=== PATIENT | female | born 1980 | race Caucasian/White ===

== ENCOUNTER 2024-07-20 09:44 | Outpatient (REF) | payer BC, SELFPAY ==
--- NOTE | 2024-07-20 08:30 | PAPFT_PTH ---
PATIENT: Jess Meyer LOC: [facility] U#:[id number] AGE/SX: 44/F ROOM: RE07/20/[address]: Winifred Rivera NP : 1980 BED: DIS: 07/20/2024 SPEC #: [id number] RECD: 07/20/24 13:01 STATUS: JOHANNA SUH #: [id number] AIME: 07/20/24 08:[address]: Winifred Rivera NP DEPT: [facility] Cytology RECD BY: Susan Cordova ENTERED: 07/20/24 13:01 SP TYPE: PAPFT OTHR DR: Caden Jeffries Tissues: 1 - CX/ENDOCX FOR PAP SMEARS Procedures: PAP THIN PREP/UVM Screening HPV DNA PROBE Comments: [id number] (HPV 16 & 18/45)
== END 2024-07-20 09:45 | disposition home or self-care (01) ==
LOC: LBN 09:44
PROVIDERS: PCP Internal Medicine; Visit Provider Nurse Practitioner Women's Health
DX: Z12.2 Encounter for screening for malignant neoplasm of respiratory organs (principal)
CPT/HCPCS: 88142; 87624

== ENCOUNTER 2024-07-22 01:01 | Outpatient (CLI) | payer BC, SELFPAY ==
--- OUTSIDE RECORDS SUMMARY | 2024-07-22 01:02 | XMS_ITS | Encounter Summary ---
[place] [address] Care Team Providers Care Supervisor General Name Role Phone Caden Jeffries MD Primary Care Provider [phone] Encounter Details Date Type Department Care Team (Latest Contact Info) Description 05/30/2024 11:20 AM EDT Laboratory Appointment Lab [address] [place] [phone] Pre-employment health screening examination Social History Tobacco Use Types Packs/Day Years Used Date Smoking Tobacco: Never Smokeless Tobacco: Never Sex and Gender Information Value Date Recorded Sex Assigned at Not on file Gender Identity Not on file Sexual Orientation Not on file documented as of this encounter Plan of Treatment Not on file documented as of this encounter Procedures Procedure Name Priority Date/Time Associated Diagnosis Comments QUANTIFERON-TB GOLD Routine 05/30/2024 1 0:54 AM EDT Pre-employment health screening examination documented in this encounter Results * QuantiFERON-TB Gold (05/30/2024 10:54 AM EDT) Quantiferon TB Nil 0.014 IU/mL 05/31/2024 10:31 AM EDT [facility] QFT TB Ag1-Nil -0.002 <0.350 IU/mL 05/31/20 10:31 AM EDT [facility] QFT TB Ag2-Nil 0.026 <0.350 IU/mL 05/31/20 10:31 AM EDT [facility] Quantiferon TB Mitogen-Nil 9.986 IU/mL 05/31/2024 10:31 AM EDT [facility] Quantiferon Tb Interp Negative Negative 05/31/2024 10:31 AM EDT [facility] Blood VENOUS BLOOD SPECIMEN / Unknown Venipuncture / Unknown 05/30/2024 10:54 AM EDT 05/30/2024 10:54 AM EDT Narrative [facility] - 05/31/2024 10:31 AM EDT No interferon-gamma response to M. tuberculosis antigens was detected. A single negative result does not exclude infection with M. tuberculosis. ??In patients at high risk for M. tuberculosis infection, a second test should be considered in accordance with the 2017 ATS/IDSA/CDC Clinical Practice Guidelines for Diagnosis of Tuberculosis in Adults and Children. Charley Page APRN CHEMISTRY ORDERABLES [facility] [place] [address] documented in this encounter Visit Diagnoses Diagnosis Pre-employment health screening examination Health examination of defined subpopulation documented in this encounter Care Teams Supervisor General Relationship Specialty Start Date End Date Caden Jeffries MD [address] [place] [address] PCP - General 09/03/10 documented as of this encounter
--- OUTSIDE RECORDS SUMMARY | 2024-07-22 01:02 | XMS_ITS | Encounter Summary ---
Author Organization [facility] [address] Care Team Providers Care Harvest Manager Name Role Phone Caden Jeffries MD Primary Care Provider [phone] Encounter Details Date Type Department Care Team (Latest Contact Info) Description 05/30/2024 Transcribe Orders Lab [address] [place] [address] Charley Page, CAROLYN [facility] [place] [address] Pre-employment health screening examination Social History Tobacco Use Types Packs/Day Years Used Date Smoking Tobacco: Never Smokeless Tobacco: Never Sex and Gender Information Value Date Recorded Sex Assigned at Not on file Gender Identity Not on file Sexual Orientation Not on file documented as of this encounter Plan of Treatment Not on file documented as of this encounter Results * QuantiFERON-TB Gold (05/30/2024 10:54 AM EDT) Quantiferon TB Nil 0.014 IU/mL 05/31/2024 10:31 AM EDT [facility] QFT TB Ag1-Nil -0.002 <0.350 IU/mL 05/31/20 10:31 AM EDT [facility] QFT TB Ag2-Nil 0.026 <0.350 IU/mL 05/31/20 10:31 AM EDT [facility] Quantiferon TB Mitogen-Nil 9.986 IU/mL 05/31/2024 10:31 AM EDT [facility] Quantiferon Tb Interp Negative Negative 05/31/2024 10:31 AM EDT [facility] Blood VENOUS BLOOD SPECIMEN / Unknown Venipuncture / Unknown 05/30/2024 10:54 AM EDT 05/30/2024 10:54 AM EDT Narrative [facility] - 05/31/2024 10:31 AM EDT No interferon-gamma response to M. tuberculosis antigens was detected. A single negative result does not exclude infection with M. tuberculosis. ??In patients at high risk for M. tuberculosis infection, a second test should be considered in accordance with the 2017 ATS/IDSA/CDC Clinical Practice Guidelines for Diagnosis of Tuberculosis in Adults and Children. Charley Page APRN CHEMISTRY ORDERABLES Performing Organization Address City/State/[facility] Co de Phone Number [facility] [place] [address] documented in this encounter Visit Diagnoses Diagnosis Pre-employment health screening examination Health examination of defined subpopulation documented in this encounter Care Teams Harvest Manager Relationship Specialty Start Date End Date Caden Jeffries MD [address] [place] [address] PCP - General 09/03/10 documented as of this encounter
--- OUTSIDE RECORDS SUMMARY | 2024-07-22 01:02 | XMS_ITS | Clinical Summary ---
Author Organization [facility] [place] [address] Care Team Providers Care Custodial Operations Manager Name Role Phone Caden Jeffries MD Primary Care Provider Allergies Active Allergy Reactions Criticality Noted Date Comments Morphine Anaphylaxis High 12/22/2018 Medications Medication Sig Dispensed Refills Start Date End Date Status levonorgestrel (MIRENA) 20 mcg/24 hours (5 yrs) 52 mg IUD 1 each by Intrauterine route Continuous (Device). Expected removal date Jun 2024 Active ketoconazole (NIZORAL) 2 % ShampooIndications: Tinea versicolor Shampoo and let it sit for 5-10 minutes, then rinse. Recommend applying 2 to 3 times weekly. 120 mL 3 01/04/2024 Active ketoconazole (Nizoral) 2 % CreamIndications:Ti olga versicolor Apply twice daily to affected areas on the upper back, neck and extending into the scalp for 28 days and then as needed subsequently. 60 g 5 01/04/2024 Active Active Problems No known active problems Encounters Date Type Department Care Team Description 05/30/2024 11:20 AM EDT Laboratory Appointment Lab [address] [place] [phone] Pre-employment health screening examination 05/30/2024 Transcribe Orders Lab [address] [address] Kaylee, Cahrley T, VESSEL ENGINEER Pre-employment health screening examination 05/30/2024 Travel from Last 3 Months Immunizations Name Administration Dates Next Due Covid-19 Monovalent (Pfizer Comirnaty purple cap) 12yrs+ ([id number]) 10/25/2020,10/03/2020 Hepatitis A, Unspecified Formulation 01/23/2006 Influenza PF, Split 07/31/2016, 5,07/25/2014,2011 Influenza Quadrivalent, Pres ervative Free 07/22/2021,07/31/2020,07/27/2019,2017,07/08/2017 Polio Inactivated (IPOL) 01/23/2006 Tdap (Adacel, Boostrix) 04/04/2014,01/23/2006 Typhoid Live, Oral 01/23/2006 Yellow Fever Vaccine 01/23/2006 Social History Tobacco Use Types Packs/Day Years Used Date Smoking Tobacco: Never Smokeless Tobacco: Never Sex and Gender Information Value Date Recorded Sex Assigned at Not on file Gender Identity Not on file Sexual Orientation Not on file Last Filed Vital Signs Vital Sign Reading Time Taken Comments Blood Pressure 117/70 07/25/2020 7:04 AM EDT Pulse 52 07/25/2020 7:04 AM EDT Temperature - - Respiratory Rate - - Oxygen Saturation - - Inhaled Oxygen Concentration - - Weight - - Height - - Body Mass Index - - Plan of Treatment Health Maintenance Due Date Last Done Comments HIV screen 2000 Hepatitis C Screening 2000 HPV test 2012 PAP Smear 2012 Breast Cancer Share Decision Needed 2022 Breast Cancer screening 2022 Tetanus/Diphtheria/Pertussis Vaccines (3 - Td or Tdap) 04/04/2024 04/04/2014, 01/23/2006 Covid-19 Vaccine (3 - 2022-2 4 season) 2024 10/25/2020, 10/03/2020 Influenza (Flu) vaccine (1 o f 1 - Influenza standard series) 06/12/2024 07/22/2021, 07/31/2020, 07/27/2019, Additional history exists Procedures Procedure Name Priority Date/Time Associated Diagnosis Comments QUANTIFERON-TB GOLD Routine 05/30/2024 1 0:54 AM EDT Pre-employment health screening examination from Last 3 Months Results * QuantiFERON-TB Gold (05/30/2024 10:54 AM EDT) Quantiferon TB Nil 0.014 IU/mL 05/31/2024 10:31 AM EDT [facility] QFT TB Ag1-Nil -0.002 <0.350 IU/mL 05/31/20 10:31 AM EDT [facility] QFT TB Ag2-Nil 0.026 <0.350 IU/mL 05/31/20 10:31 AM EDT [facility] Quantiferon TB Mitogen-Nil 9.986 IU/mL 05/31/2024 10:31 AM EDT [facility] Quantiferon Tb Interp Negative Negative 05/31/2024 10:31 AM EDT [facility] Blood VENOUS BLOOD SPECIMEN / Unknown Venipuncture / Unknown 05/30/2024 10:54 AM EDT 05/30/2024 10:54 AM EDT Narrative [facility] - 05/31/2024 10:31 AM [...] and Children. Charley Page APRN CHEMISTRY ORDERABLES [facility] [place] [address] from Last 3 Months Care Teams Custodial Operations Manager Relationship Specialty Start Date End Date Caden Jeffries MD [address] [place], [place] [address] PCP - General 09/03/10
--- OUTSIDE RECORDS SUMMARY | 2024-07-22 01:03 | XMS_ITS | Encounter Summary ---
Author Organization [facility] Address [address] [place] [address] Care Team Providers Care Piece Presser Name Role Phone Caden Jeffries MD Primary Care Provider [phone] Encounter Details Date Type Department Care Team (Late st Contact Info) Description 12/18/2021 Lab Requisition [facility] Pathology & Laboratory Medicine - [address] [address] Outr Resulting Lab, Provider Social History Tobacco Use Types Packs/Day Years Used Date Smoking Tobacco: Never Assessed Sex and Gender Information Value Date Recorded Sex Assigned at Not on file Gender Identity Not on file Sexual Orientation Not on file documented as of this encounter Plan of Treatment Not on file documented as of this encounter Procedures Procedure Name Priority Date/Time Associated Diagnosis Comments QUANTIFERON MITOGEN (PERFORMABLE) Today 12/17/2021 10:13 EST QUANTIFERON TB2 (PERFORMABLE) Today 12/17/2021 10:13 EST QUANTIFERON TB1 (PERFORMABLE) Today 12/17/2021 10:13 EST QUANTIFERON NIL (PERFORMABLE) Today 12/17/2021 10:13 EST QUANTIFERON INTERPRETATION (PERFORMABLE) Today 12/17/2021 10:13 EST QUANTIFERON TB GOLD PLUS Routine 12/17/2021 10:13 EST documented in this encounter Results * QUANTIFERON INTERPRETATION (PERFORMABLE) (12/17/2021 10:13 EST) Quantiferon Interpretation Negative Negative 12/19/2021 12:17 EST [facility] Comment:No interferon-gamma response to M. tuberculosis antigens was detected. ??Infection with M. tuberculosis is unlikely. A single negative result does not exclude infection with M. tuberculosis. ??In patients at high risk for M. tuberculosis infection, a second test should be considered. TB1 Ag minus Nil 0.01 IU/ml 12/20/19 12:17 EST [facility] TB2 Ag minus Nil 0.03 IU/mL 12/20/19 12:17 EST [facility] Blood VENOUS BLOOD / Unknown 12/17/2021 10:13 EST 12/19/2021 11:50 EST Narrative [facility] - 12/19/2021 12:17 EST Results were obtained with the [employer] QuantiFERON-TB Gold Plus CLIA. New platform in use 06/19/2021 Provider Outr Resulting Lab IMMUNOLOGY A ND SEROLOGY ORDERABLES Performing Organization Address [facility] Co de Phone Number [facility] [address] [place] [address] * QUANTIFERON MITOGEN (PERFORMABLE) (12/17/2021 10:13 EST) Blood VENOUS BLOOD / Unknown 12/17/2021 10:13 EST 12/18/2021 16:49 EST Provider Outr Resulting Lab IMMUNOLOGY A ND SEROLOGY ORDERABLES Performing Organization Address City/[facility]/ZIP Co de Phone Number [facility] [address] [place] [address] * QUANTIFERON TB2 (PERFORMABLE) (12/17/2021 10:13 EST) Blood VENOUS BLOOD / Unknown 12/17/2021 10:13 EST 12/18/2021 16:49 EST Provider Outr Resulting Lab IMMUNOLOGY A ND SEROLOGY ORDERABLES Performing Organization Address [facility]/ZIP Co de Phone Number [facility] [address] [place] [address] * QUANTIFERON TB1 (PERFORMABLE) (12/17/2021 10:13 EST) Blood VENOUS BLOOD / Unknown 12/17/2021 10:13 EST 12/18/2021 16:49 EST Provider Outr Resulting Lab IMMUNOLOGY A ND SEROLOGY ORDERABLES Performing Organization Address [facility] de Phone Number [facility] [address] [place] [address] * QUANTIFERON NIL (PERFORMABLE) (12/17/2021 10:13 EST) Blood VENOUS BLOOD / Unknown 12/17/2021 10:13 EST 12/18/2021 16:49 EST Provider Outr Resulting Lab IMMUNOLOGY A ND SEROLOGY ORDERABLES Performing Organization Address [facility] de Phone Number [facility] [address] [place] [address] documented in this encounter Visit Diagnoses Not on filedocumented in this encounter Care Teams Piece Presser Relationship Specialty Start Date End Date Caden Jeffries MD [address] [place] [address] PCP - General 04/11/10 documented as of this encounter
--- OUTSIDE RECORDS SUMMARY | 2024-07-22 01:03 | XMS_ITS | Encounter Summary ---
Author Organization [facility] [place] [address] Care Team Providers Care Manager Cancer Name Role Phone Caden Jeffries MD Primary Care Provider [phone] Encounter Details Date Type Department Care Team (Late st Contact Info) Description 07/25/2020 7:00 AM EDT Office [place] [address] Charley Page APRN [facility] [place] [address] Wheezing (Primary Dx) Social History Tobacco Use Types Packs/Day Years Used Date Smoking Tobacco: Never Smokeless Tobacco: Never Sex and Gender Information Value Date Recorded Sex Assigned at Not on file Gender Identity Not on file Sexual Orientation Not on file documented as of this encounter Last Filed Vital Signs Vital Sign Reading Time Taken Comments Blood Pressure 117/70 07/25/2020 7:04 AM EDT Pulse 52 07/25/2020 7:04 AM EDT Temperature - - Respiratory Rate - - Oxygen Saturation - - Inhaled Oxygen Concentration - - Weight - - Height - - Body Mass Index - - documented in this encounter Patient Instructions * Patient Instructions* Charley Page APRN - 07/25/2020 7:00 AM EDT 1. Wheezing Please follow up with your primary care provider to discuss if pulmonary function testing is warranted to determine your asthma status given current symptoms. I will reach out to discuss possible, but unlikely correlation between mask use and your current symptoms of wheezing after discontinuing mask use and get back to you. I will also email you the list of our current masks in use with their active ingredients as requested. documented in this encounter Progress Notes * Charley Page APRN - 07/25/2020 7:00 AM EDT Subjective: Patient ID: Jess Meyer is a 40 y.o. female No chief complaint on file. History of Present Illness: Jess Meyer presents with mask related complaints. Onset of symptoms about a month and half ago. She has noted that after working two consecutive 12-hour shifts, about 24 hours later she will do her usual exercise on the stationary bicycle and will note audible wheezing with mild shortness of breath that is atypical for her. This is not a new exercise for her, sherides the bike normally and does not experience this until of recent. She denies any chest pain, heart palpitations, diaphoresis or lightheadedness associated and she directly correlates the wheezingand shortness of breath with exercise to her mask use at work. After the first day of exercise following her two shifts, she will not continue to experience the wheezing, this only occurs on that first day of exercising. She reports that she was previously able to use the standard Level 2 medical masks with similar symptoms, current symptoms only with the Level 1 masks being handed out at the door. She does have a history of exercise induced asthma, with rescue inhaler use as a child. She has notneeded the inhaler in 20 years. Did not need it throughout . She has allergy to morphine. Thinks she has seasonal allergies, in the Fall will notice some sinus pressure with their wood stove, denies any significant rhinorrhea. When she does get a cold in the Winter months, she may get a bit of a reactive airway with a cough that might linger longer than other symptoms. She denies any tobacco use They heat with a wood stove at home She denies latex allergy She denies any allergies to dyes, perfumes or chemical sensitivities Review of Systems Constitutional: Negative for chills and fever. HENT: Positive for sinus pressure. Negative for congestion, postnasal drip, rhinorrhea and sinus pain. Respiratory: Positive for shortness of breath and wheezing. Negative for cough and chest tightness. Cardiovascular: Negative for chest pain, palpitations and leg swelling. Allergic/Immunologic: Negative for environmental allergies. Neurological: Negative for dizziness and light-headedness. Active Ambulatory Problems Diagnosis Date Noted ??? No Active Ambulatory Problems Resolved Ambulatory Problems Diagnosis Date Noted ??? No Resolved Ambulatory Problems No Additional Past Medical History No family history on file. Social History Social History Narrative ??? Not on file Current Outpatient Medications: ??? levonorgestrel (MIRENA) 20 mcg/24 hours (5 yrs) 52 mg IUD, 1 each by Intrauterine route Continuous (Device). Expected removal date Jun 2024, Disp: , Rfl: Allergies Allergen Reactions ??? Morphine Anaphylaxis Objective: Visit Vitals BP 117/70 Pulse 52 Physical Exam: Gen: Well developed, well nourished, appears stated age, no acute distress. HEENT: Normocephalic, atraumatic. sclera white, conjunctiva not injected, nares with moist/pink mucosa, septum midline, Oropharynx is nonerythematous and without exudate, uvula midline. Cardiovascular: Regular rate and rhythm. No murmurs, rubs, or gallops. Pulmonary: Clear to auscultation bilaterally with good air movement. No wheeze, rales, or rhonchi. Extremities: Nonedematous. Capillary refill < 3 seconds. Full active ROM. Neurologic: Alert and oriented x 3. Assessment and Plan: Jess Meyer presents with concerns of mask related wheezing and a relevant past medical history notable for exercise induced asthma which has been inactive for quite some time. It seems unlikelythat there is a correlation between the mask use and wheezing as symptoms of wheezing are not present while wearing the mask, they present 24 + hours after discontinuing use of the mask. Will review w ith Allergy, but advised that she should follow up with her primary care provider to discuss if pulmonary function testing to review her asthma status would be warranted as given her history of exercise induced asthma, she may be in need of a rescue inhaler for pre-exercise treatment as in the past. In the meantime, she was advised that she may use the Level 2 standard medical masks as she did not feel these were problematic to her in the past and they are readily accessible to her on the unit. documented in this encounter Plan of Treatment Not on file documented as of this encounter Visit Diagnoses Diagnosis Wheezing- Primary documented in this encounter Care Teams Manager Cancer Relationship Specialty Start Date End Date Caden Jeffries MD [address] [place] [address] PCP - General 09/03/10 documented as of this encounter
--- OUTSIDE RECORDS SUMMARY | 2024-07-22 01:03 | XMS_ITS | Encounter Summary ---
[place] [address] Care Team Providers Care Assistant News Director Name Role Phone Caden Jeffries MD Primary Care Provider [phone] Encounter Details Date Type Department Care Team (Latest Contact Info) Description 05/30/2024 Travel Social History Tobacco Use Types Packs/Day Years Used Date Smoking Tobacco: Never Smokeless Tobacco: Never Sex and Gender Information Value Date Recorded Sex Assigned at Not on file Gender Identity Not on file Sexual Orientation Not on file documented as of this encounter Plan of Treatment Not on file documented as of this encounter Visit Diagnoses Not on filedocumented in this encounter Care Teams Assistant News Director Relationship Specialty Start Date End Date Caden Jeffries MD [address] [place] [address] PCP - General 09/03/10 documented as of this encounter
--- OUTSIDE RECORDS SUMMARY | 2024-07-22 01:03 | XMS_ITS | Encounter Summary ---
Author Organization [facility] Address [address] [place] [address] Care Team Providers Care City Weighmaster Name Role Phone Unknown, Provider Primary Care Provider Encounter Details Date Type Department Care Team (Late st Contact Info) Description 03/13/2009 Orders Only [address] [address] Zelda Da Silva MD [address] [place] [id number] Social History Tobacco Use Types Packs/Day Years Used Date Smoking Tobacco: Never Assessed Sex and Gender Information Value Date Recorded Sex Assigned at Not on file Gender Identity Not on file Sexual Orientation Not on file documented as of this encounter Plan of Treatment Not on file documented as of this encounter Procedures Procedure Name Priority Date/Time Associated Diagnosis Comments CYTOPATHOLOGY Routine 03/13/2009 0:00 EDT documented in this encounter Results * CYTOPATHOLOGY (03/13/2009 0:00 EDT) Pathology Report: CYTOPATHOLOGY REPORT ? Reports generated via electronic interface contain original data; ? however they are lacking the format of the original report. ? Caution should be taken when reading/interpreti ng unformatted reports. ? Name: ? JESS MEYER ? Accession #: ? [id number] ? : ? 1980 (Age: 28) ??F ?Collect Date: ? 03/13/2009 ? Location: ? [facility] ? Receive Date: ? 03/14/2009 ? Provider: ?ZELDA DA SILVA MD ? Copy to: ? Specimen/Source: ?Pap Test, Vagina, ThinPrep Imaging System with manual ?? evaluation ? Last Menstrual Period: ? 5/19/09 ? Other: ? HPVA - HPV testing requested if ASC-US on the current ThinPrep Pap test. ? SPECIMEN ADEQUACY ? Satisfactory for Evaluation ? - transformation zone component present ? GENERAL CATEGORIZATION ? Negative for Intraepithelial Lesion or Malignancy ? Document reviewed and electronically signed by: ? Trina Manley, SCT(ASCP) ? Report Date: ??03/19/2009 08:23 ? End of Report ? [facility] 03/13/2009 03/14/2009 Zelda Da Silva MD PATHOLOGY ORDERABLES Performing Organization Address City/State/[facility] Co de Phone Number [facility] [address] [place] [address] documented in this encounter Visit Diagnoses Not on filedocumented in this encounter Care Teams City Weighmaster Relationship Specialty Start Date End Date Unknown, Provider, PCP - General 03/14/09 04/10/10 documented as of this encounter
--- OUTSIDE RECORDS SUMMARY | 2024-07-22 01:03 | XMS_ITS | Encounter Summary ---
[place] [address] Care Team Providers Care Vineyard Supervisor Name Role Phone Caden Jeffries MD Primary Care Provider Encounter Details Date Type Department Care Team (Late st Contact Info) Description 10/03/2020 [place] [address] [place] [address] Social History Tobacco Use Types Packs/Day Years [...] on filedocumented in this encounter Care Teams Vineyard Supervisor Relationship Specialty Start Date End Date Caden Jeffries MD [address] [place], [place] [address] PCP - General 09/03/10 documented as of this encounter
--- OUTSIDE RECORDS SUMMARY | 2024-07-22 01:03 | XMS_ITS | Encounter Summary ---
Author Organization [facility] [place] [address] Care Team Providers Care Case Management Coordinator Name Role Phone Caden Jeffries MD Primary Care Provider Encounter Details Date Type Department Care Team (Late st Contact Info) Description 07/25/2014 Orders Only [place] [address] Cristofer Freire, CREDIT RISK MANAGEMENT DIRECTOR [facility] [place] [address] Social History Tobacco Use Types Packs/Day Years Used Date Smoking Tobacco: Never Assessed Sex and Gender Information Value Date Recorded Sex Assigned at Not on file Gender Identity Not on file Sexual Orientation Not on file documented as of this encounter Plan of Treatment Not on file documented as of this encounter Procedures Procedure Name Priority Date/Time Associated Diagnosis Comments QUANTIFERON-TB GOLD Routine 07/25/2014 1 1:06 AM EDT documented in this encounter Results * QuantiFERON-TB Gold (07/25/2014 11:06 AM EDT) Quantiferon-TB Gold Negative Negative [facility] Comment: Nil (IU/mL)= 0.13 TB Ag minus Nil (IU/mL)= -0.07 Mitogen minus Nil (IU/mL)= >10 M. tuberculosis (TB) infection NOT likely ?A negative specimen should have a TB Ag minus Nil value less than 0.35 IU/mL OR a TB Ag minus Nil greater than or equal to 0.35 IU/mL and in addition the TB Ag minus Nil value must be less than 25% of the Nil value. A negative specimen should have a Mitogen minus Nil value greater than or equal to 0.5 IU/mL. ?A negative QuantiFERON-TB Gold IT result does not preclude the possibility of M. tuberculosis infection or tuberculosis disease: false negative results can be due to stage of infection (e.g., specimen obtained prior to the development of cellular immune response), co-morbid conditions which affect immune function, or other individual immunological factors. ?The performance of the QuantiFERON-TB Gold IT test has not been extensively evaluated with specimens from the following groups of individuals: ?1. Individuals who have impaired or altered immune function such as those who have HIV infection or AIDS, those who have transplantation managed with immunosuppressive treatment or others who receive immunosuppressive drugs (e.g., corticosteroids, methotrexate, azathioprine, cancer chemotherapy), and those who have other clinical conditions: diabetes, silicosis, chronic renal failure, hematological disorders (e.g., leukemia and lymphomas), and other specific malignancies (e.g., carcinoma of the head or neck and lung). ?2. Individuals younger than age 17 years. ?3. women. Note: Diagnosing or excluding tuberculosis disease, and assessing the probability of LTBI, require a combination of epidemiological, historical, medical, and diagnostic findings that should be taken into account when interpreting QuantiFERON-TB Gold results. Reference (http://www.cdc.gov/nchstp/tb/) Blood specimen (specimen) 07/25/2014 11:06 AM EDT 07/26/2014 8:06 AM EDT Narrative Resulting Agency Comment Spec In Lab Cristofer Freire CREDIT RISK MANAGEMENT DIRECTOR CHEMISTRY ORDERABLE [facility] documented in this encounter Visit Diagnoses Not on filedocumented in this encounter Care Teams Case Management Coordinator Relationship Specialty Start Date End Date Caden Jeffries MD [address] [place] [address] PCP - General 09/03/10 documented as of this encounter
--- OUTSIDE RECORDS SUMMARY | 2024-07-22 01:03 | XMS_ITS | Encounter Summary ---
Author Organization [facility] Address [facility] [place] [address] Care Team Providers Care Variety Saw Operator Name Role Phone Caden Jeffries MD Primary Care Provider [phone] Reason for Visit * Reason Comments Procedure Encounter Details Date Type Department Care Team (Late st Contact Info) Description 07/27/2019 8:00 AM EDT Office Visit Dermatology at [address] [place] [address] Julia Mcrae MD [facility] [address] [address] Encounter for cosmetic procedure Social History Tobacco Use Types Packs/Day Years Used Date Smoking Tobacco: Never Smokeless Tobacco: Never Sex and Gender Information Value Date Recorded Sex Assigned at Not on file Gender Identity Not on file Sexual Orientation Not on file documented as of this encounter Patient Instructions * Patient Instructions* Chanel Frederick CCMA - 07/27/2019 8:00 AM EDT Images from the original note were not included. SCLEROTHERAPY INSTRUCTIONS Thank you for scheduling your Sclerotherapy treatment with [facility]. Patients typically require anywhere from two to six treatments to effectively clear their unwanted veins. Treatments should be scheduled at 6- 8week intervals. For your safety and in order to obtain optimum results, the instructions below must be followed. Pre-Treatment instructions for your legs prior to treatment for veins: ??? No aspirin or blood-thinning products (fish oil, vitamin E, ibuprofen, non- steroidal anti-inflammatory drugs) for 7-9 days before the procedure (check with your physician first if you must be on these medications). ??? Bring Support Hose to your procedure for immediate post procedure use. We suggest 20-30 mmHg pressure. ??? Do not shave or use depilatories on legs the day of the procedure. ??? Do not apply lotion to your legs on the day of the procedure. ??? Shower and thoroughly wash your legs with a gentle skin cleanser the morning of your appointment. ??? Expect possible bruising for approximately one week after the procedure. ??? Mild muscle cramping is not uncommon during the procedure. Ok to take an extra strength Tylenol1 hour before your procedure. Avoid Ibuprofen until after your procedure. ??? Bring shorts to increase your comfort during the treatment. ??? Try to avoid drinking alcohol or smoking 2 days prior and 2 days after the procedure. ??? If you have any further questions, please ask your doctor prior to the procedure. Care instructions for your legs after treatment for veins: ??? Leave thigh-high compression stockings on for 24 hours after treatment. After the first 24 hours, please take them off only to bathe. ??? After the first week, stockings can be removed at night or any time that the legs can be elevated. Wearing the compression stockings will help you to achieve the best possible result with fewer side effects. Continue to wear them as part of your regular routine. They may prevent the appearance of new veins especially if you sit or stand for more than 6 hours a day or have a strong family history of varicose veins. ??? Do not shave your legs for 3-4 days. ??? Take a 30-60 minute walk shortly after the treatment, and walk 20-30 minutes a day for 2 weeks,but avoid high impact exercise (aerobics or running) or heavy weight lifting for 7 days. Walking, swimming, yoga and cycling are healthy exercises to initiate the day after your treatment. ??? Avoid hot baths or Jacuzzis for a few days following procedure to avoid dilating veins. ??? Typical side effects that should not cause concern: o Redness and swelling (with the appearance of ???hives?? ) around the treated veins that may last 1-2 days. This may be associated with some itching and burning and may improve with xtlt-mah-zqdyqbaKfclxbyq 25mg or a non-sedating antihistamine such as Zyrtec 10mg. o Bruising around the treated area is normal and should resolve within 1 week. o Discoloration is common as treated veins heal. Veins may appear purple, brown or blue for 6-8 weeks. Sun exposure worsens discolorations and may cause them to last longer or become permanent. Avoidsun exposure completely until the treated areas return to your normal appearing skin. Untreated trapped blood (see next) may also increase your risk of long lasting discoloration. ??? Less Common side effects that we want to know about: o Trapped blood is a treatable, occasional side effect that should be reported to your provider. A firm lump appears in the skin when blood accumulates in a treated vessel 1-2 weeks after treatment. This can easily be treated in the office. Please call if you experience this treatable side effect. o Pain, expanding redness/ swelling, blistering, or leg swelling should be immediately reported to your doctor. ??? Expect not to see improvement for at least 6 weeks after your treatment. During the post treatment period it is normal for veins to actually look worse. ??? Avoid blood thinners (aspirin, fish oil, vitamin E, ibuprofen, etc.) for 3-4 days following procedure (ask your doctor first if these are prescribed by your doctor) Resources for Support Stockings: [email or web address] Questions and/or concerns please call: ???s appointment corporate legal secretary On weekends of off hours please call [facility] main number and ask for the material carrier final inspection supervisor: or call Dr. Mcrae's cell: [phone] or email her at [email or web address] What are Unwanted Leg Veins Called? When leg veins become damaged or aged and stop functioning efficiently they become visible on the surface of the skin. Their appearance can be categorized based on their size: Varicose veins are large, ropy and tortuous blue veins that bulge and are very noticeable. These veins are not typically treated by sclerotherapy in our office but can be treated by interventional radiologists or vascular surgeons. We can refer you if this is needed. Reticular veins are blue or green, 2-6 mm non- bulging and often subtle leg veins. Reticular veins are sometimes referred to as ???feeder veins?? and are commonly understood to be the cause of spider veins. Spider veins may respond better when the reticular veins are treated first. Spider veins are small veins (less than 2mm) that can be seen on the surface of the skin and resemble tree branches with short, jagged lines. They are considered a milder form of varicose veins and differ in appearance, ranging from pink, red to bluish purple. These veins are a common target for scl erotherapy treatments. Telangiectasias: are the smallest form of spider veins (always less than 1 mm) and are red in color. Telangiectasias often improve with sclerotherapy but are sometimes too small to target. In those cases, lasers may be used. What causes visible leg veins? The appearance of visible veins in our legs is most often a normal consequence of aging and wear and tear on the valves that make our veins function properly. Heredity, hormone replacement thereapy, , obesity, inactivity, high impact activity, and trauma are among the factors that influen ce the appearance and severity of leg veins. What is Sclerotherapy? Performed on an outpatient basis, sclerotherapy involves the injection of a sclerosing solution, (such as hypertonic saline, glycerin or Sotradecol) into the dilated vessels. This causes the lining of the vessels to swell and close, resulting in both a landscape laborer color and improvement in the appearance of the vessels. In many cases, the veins can be completely eliminated. What Can I Expect During Treatment? Most people experience mild discomfort for about 15 to 30 seconds, similar to a mosquito bite. The area to be treated is wiped with alcohol and then injections are made into the visible veins. Injections range from barely noticeable to sometimes uncomfortable but the discomfort is always brief.The injected veins completely disappear for a few minutes as blood is pushed out by the solution, but they reappear when the blood flow returns. What Can I Expect After Treatment? Immediately afterwards and for several weeks, those treated veins will look more noticeable than they were to begin with. Since many vessels are interconnected, one injection may eradicate several dozen vessels at once by washing over the cells lining the inner wall of the vessel, causing them to shrink. They will slowly disappear, as your body???s natural response to injury clears them. Some patients experience itching and swelling for up to 12 hours after the treatment but for most these symptoms are very mild. Experts debate the importance of support stockings after sclerotherapy. Their importance is thought to be greater when the veins being treated are larger. We therefore require themafter treatment of reticular veins (larger blue feeder veins) and encourage them but do not requirethem after spider vein or telangiectasia are treated. They should be worn at all times throughout the day. How Soon Will the Veins Disappear? Veins will fade over six to 12 weeks after treatment. Smaller vessels may disappear completely and large vessels should decrease in size. Are There Any Restrictions After Sclerotherapy? We encourage you to be active after sclerotherapy. Walking (even immediately) is helpful. Yoga, swimming, bicycling and walking are all allowed and encouraged. Are There Any Side Effects Associated with Sclerotherapy? Serious side effects from this procedure are extremely rare; however, some temporary side effects may occur. ??? Local swelling and bruising may occur at the injection site and along the vessel. Swelling usually lasts no more than 24 hours; bruising fades within several weeks. Brown discoloration may infrequently develop. This usually lasts approximately three months, slowly fading away. ??? Tenderness may occur at the injection site and along the vessel, and may persist for a few days. ??? Immediately following injection, a hive-like reaction may develop at the site, usually lasting no longer than 30 minutes. ??? Following injection of the ankle or calf, cramping similar to a ???charley horse?? may occur. documented in this encounter Progress Notes * Julia Mcrae MD - 07/27/2019 8:00 AM EDT Images from the original note were not included. DATE OF SERVICE: 07/27/2019 PROVIDER: MD Jess Tinajero Elly Mitch : 1980 PATIENT PREFERENCES: -prefers to be called: Jess or Melissa BRONSON Jess Meyer is a 39 y.o. year old female. Here for sclerotherapy procedure 07/27/2019. Date and name of most recent procedure: n/a Patient's impression of recent procedure experience and results: n/a Concerns from previous visit?: n/a COSMETIC TREATMENT VISIT -Questions or concerns today? none -Any change in health or new diagnosis since last visit?: had Mirena IUD placed in Jun -Any new medications?: as above -Pt received pre and post instructions? yes -HSV prophylaxis? No history -Stopped retinoids/ Vitamin C/ AHAs? yes -Recent sun exposure? No, not for 2 months -, lactating or trying to conceive?: no -Recent ibuprofen, aspirin, or other blood thinner? (including ginko biloba, vitamin E, fish oil) none ADR: Allergies Allergen Reactions ??? Morphine Anaphylaxis MEDS: No current outpatient medications on file. No current facility-administered medications for this visit. EXAMINATION: -New findings: Assessment and Plan: # Unwanted leg veins Area of Concern: Legs - Treatment today? Y If yes, see Sclerotherapy Treatment Log - Special considerations for this patient: Most concerned over veins on the calf on the left leg. pt is nurse and works long shifts. Encouraged today to wear compression stockings when working - Consent signed?: (date) - Suggested treatment course: vials every 6-8 weeks for treatments. - [facility] quoted: $250 per session - Sclerotherapy Before and After HO given? Y ?? # ND Yag treatments for spider veins located on bilateral legs - Number of treatments recommeded: 1-2 - Special considerations for this pt: - Area of main concern: back of left lower leg - Before and after instructions given (in AVS): N (name of handout) - HSV prophylaxis needed?: N If yes, does pt have rx?: N date verified: 07/27/19?? - [facility] quoted: $250.00 per treatment - See laser log for treatment dates and details - Consent signed? Yes -Additional notes: consider beginning tx after sclerotherapy ?? Date: 07/27/19 Laser: IPL Area: lower legs Spot: large Energy(J): 19 Pulse Duration: 01/29/ Pulse #: 6 Paid: $combined cost Tx By:RL Notes: SCLEROTHERAPY TREATMENT LOG Date: 07/27/19 Area: lower legs Sclerosant: Asclera 1%, 20mg per 2mL Number of Vials: 4 Lot #: [id number] Expiration: 07/2021 Paid: $250 Tx By:RL Notes: ? FOLLOW UP WHEN: Nov FOR WHAT: sclerotherapy +IPL LENGTH OF VISIT: 15 NUMBING?: no PICTURES NEEDED? Yes (iPad)OK D/B?: no Notes: COSMETIC COST TODAY: $150 ($250- $100 from consult) Photos obtained with patient consent: Treatment delivered by Dr. Mcrae I am documenting this encounter acting as the scribe for and in the presence of Julia Mcrae MD,LILLIAN Campa I performed the above scribed service and agree with the accuracy of the documentation in this encounter, MD Julia Tinajero MD Section of Dermatology documented in this encounter Plan of Treatment Not on file documented as of this encounter Visit Diagnoses Diagnosis Encounter for cosmetic procedure documented in this encounter Care Teams Variety Saw Operator Relationship Specialty Start Date End Date Caden Jeffries MD [address] [place] [address] PCP - General 09/03/10 documented as of this encounter
--- OUTSIDE RECORDS SUMMARY | 2024-07-22 01:03 | XMS_ITS | Encounter Summary ---
[facility] [place] [address] Care Team Providers Care Box Maker Name Role Phone Caden Jeffries MD Primary Care Provider [phone] Encounter Details Date Type Department Care Team (Late st Contact Info) Description 02/13/2009 Orders Only Dermatology at [place] [address] [place] [address] Luis Fernando Govea MD [address] [facility], LUCIA A DERMATOLOGY [place], [place] [id number] Social History Tobacco Use Types Packs/Day Years Used Date Smoking Tobacco: Never Assessed Sex and Gender Information Value Date Recorded Sex Assigned at Not on file Gender Identity Not on file Sexual Orientation Not on file documented as of this encounter Plan of Treatment Not on file documented as of this encounter Procedures Procedure Name Priority Date/Time Associated Diagnosis Comments SURGICAL PATHOLOGY REPORT Routine 02/13/2009 7:05 PM EDT documented in this encounter Results * Surgical Pathology Report (02/13/2009 7:05 PM EDT) Surgical Pathology Report [id number] ? Location: [facility] The signing pathologist has (i) examined the relevant preparation(s) for the specimen(s) and (ii) rendered or confirmed the diagnosis(es). . ?Pathology Surgical Pathology Final Report Clinical Information Specimen Submitted: A - (L) arm, Excision (1): Clinical History: Changing mole Clinical Diagnosis: Atypical nevus, R/O MM Report to: Luis Fernando Govea MD, III [facility] Dermatology [place], [place] ??[address] Gross Description Labeled/Fixativ e: ? L arm, formalin. Qty/Size/Weight : ?Single, 0.6 x 0.3 x 0.3 cm. Tissue Description: ?? Brown, wrinkled skin ellipse with a central 0.2-cm ?in diameter, well-circumscri bed black macule. Sections/Proces sing: ??The specimen is inked and serially sectioned. ??The ?ends are submitted in (1); the remainder of the ?specimen submitted in (2). ??(T2) ??[facility] Microscopic Description Slides reviewed, microscopic description not recorded. 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 The examined inked margins are free of lesion ?? (see Comment). CR-0 02/15/09 SY 02/16/09 Verified by: ? Edenilson PAULINO, PhD, Manny ?Dermatopathol ogist ?(Electronic Signature) The attending pathologist whose signature appears on this report has reviewed all diagnostic slides and has edited the gross and/or microscopic portion of the report in rendering the final pathologic diagnosis. Comment Multiple deeper levels have been examined. Drs. Kumar and Maile have reviewed this case and concur with this diagnosis. CLEM FELIZ 02/13/2009 7:05 PM EDT Luis Fernando Govea MD PATHOLOGY/CYTOLOGY O RDERABLES [facility] [place] documented in this encounter Visit Diagnoses Not on filedocumented in this encounter Care Teams Box Maker Relationship Specialty Start Date End Date Caden Jeffries MD [address] [place] [address] PCP - General 09/03/10 documented as of this encounter
--- OUTSIDE RECORDS SUMMARY | 2024-07-22 01:03 | XMS_ITS | Encounter Summary ---
Author Organization [facility] [place] [address] Care Team Providers Care Industrial Cleaner Name Role Phone Caden Jeffries MD Primary Care Provider [phone] Encounter Details Date Type Department Care Team (Late st Contact Info) Description 11/04/2019 Telephone Dermatology at [facility] [address] [place] [address] Julia Mcrae MD [facility] [address] [place] [address] Social History Tobacco Use Types Packs/Day Years Used Date Smoking Tobacco: Never Smokeless Tobacco: Never Sex and Gender Information Value Date Recorded Sex Assigned at Not on file Gender Identity Not on file Sexual Orientation Not on file documented as of this encounter Miscellaneous Notes * Telephone Encounter - Lisette Reyes - 11/04/2019 3:16 PM EST I contacted patient today to offer sooner appointment on 11/05. I was unable to speak w/ anyone whenI called, but I was able to leave [phone] for call back. documented in this encounter Plan of Treatment Not on file documented as of this encounter Visit Diagnoses Not on filedocumented in this encounter Care Teams Industrial Cleaner Relationship Specialty Start Date End Date Caden Jeffries MD [address] [place] [address] PCP - General 09/03/10 documented as of this encounter
--- OUTSIDE RECORDS SUMMARY | 2024-07-22 01:03 | XMS_ITS | Encounter Summary ---
[place] [address] Care Team Providers Care Licensed Architect Name Role Phone Caden Jeffries MD Primary Care Provider [phone] Encounter Details Date Type Department Care Team (Latest Contact Info) Description 04/09/2023 Travel Social History Tobacco Use Types Packs/Day [...] on filedocumented in this encounter Care Teams Licensed Architect Relationship Specialty Start Date End Date Caden Jeffries MD [address] [place] [address] PCP - General 09/03/10 documented as of this encounter
--- OUTSIDE RECORDS SUMMARY | 2024-07-22 01:03 | XMS_ITS | Encounter Summary ---
Author Organization Formerly [facility] [place] [address] Care Team Providers Care Dog License Officer Supervisor Name Role Phone Caden Jeffries MD Primary Care Provider Encounter Details Date Type Department Care Team (Late st Contact Info) Description 06/01/2012 Orders [place] [address] Dia Polo, SETTLEMENT CLERK [facility] [place] [address] Social History Tobacco Use Types Packs/Day Years Used Date Smoking Tobacco: Never Assessed Sex and Gender Information Value Date Recorded Sex Assigned at Not on file Gender Identity Not on file Sexual Orientation Not on file documented as of this encounter Plan of Treatment Not on file documented as of this encounter Procedures Procedure Name Priority Date/Time Associated Diagnosis Comments HEPATITIS B SURFACE ANTIBODY Routine 06/01/2012 1:51 PM EDT documented in this encounter Results * HEPATITIS B SURFACE ANTIBODY (06/01/2012 1:51 PM EDT) Pathologist [facility] Hepatitis B Surface Antibody Positive [facility] Comment: Expected Results: Vaccinated: Positive Unvaccinated: Negative Please note: A positive result for this assay is consistent with a concentration of anti-HBs antibodies >10mIU/ml, which indicates that anti-HBs antibodies have been detected at levels consistent with protective immunity against HBV infection. Blood specimen (specimen) 06/01/2012 1:51 PM EDT 06/01/2012 1:55 PM EDT Narrative Resulting Agency Comment Spec In Lab Dia Polo SETTLEMENT CLERK CHEMISTRY ORDERABLES Performing Organization Address City/State/[facility] Co wa Phone Number [facility] documented in this encounter Visit Diagnoses Not on filedocumented in this encounter Care Teams Dog License Officer Supervisor Relationship Specialty Start Date End Date Caden Jeffries MD [address] [place] [address] PCP - General 09/03/10 documented as of this encounter
--- OUTSIDE RECORDS SUMMARY | 2024-07-22 01:03 | XMS_ITS | Encounter Summary ---
Author Organization Formerly [facility] [place] [address] Care Team Providers Care Fudge Candy Maker Name Role Phone Caden Jeffries MD Primary Care Provider [phone] Reason for Visit * Reason Comments Rash Encounter Details Date Type Department Care Team (Late st Contact Info) Description 04/09/2023 10:20 AM EDT Office Visit Dermatology at [address] [place] [address] Sri Najera MD [facility] [place] [place] [address] Tinea versicolor Social History Tobacco Use Types Packs/Day Years Used Date Smoking Tobacco: Never Smokeless Tobacco: Never Sex and Gender Information Value Date Recorded Sex Assigned at Not on file Gender Identity Not on file Sexual Orientation Not on file documented as of this encounter Progress Notes * Sri Najera MD - 04/09/2023 10:20 AM EDT Images from the original note were not included. DEPARTMENT OF DERMATOLOGY Medical Dermatology Clinic Provider: Sri Najera MD Patient's preferred name Jess Preferred contact method for results []Phone []myD-H []Letter Detailed phone message OK? Y Are there any other people with whom we may discuss your care? Y - Agapito () Past Medical History Date, location, treatment Melanoma N Dysplastic nevi N SCC N BCC N AKs N UV Exposure & Protection + history of tanning bed use + history of blistering sunburn Other relevant past medical history N Family History Details Melanoma N NMSC N Other relevant family history N Social History Occupation: RN Hobbies: camping Other: , 3 children PRE-PROCEDURE SCREENING Details Allergy to lidocaine, epinephrine, Dermabond, chlorhexidine, or adhesives N Bleeding disorder or blood thinners N Pacemaker, defibrillator, deep brain stimulator, cochlear implant N History of Present Illness: Jess Meyer is a 42 y.o. Patient is new and self-referred to the clinic for yearly rash on neck, trunk and at times lower legs that worsens in summer months. -rash originally started years ago during childbirth and the OB-CRYOLITE RECOVERY OPERATOR mentioned looked anti-fungal soshe has been regularly applying with OTC anti-fungal creams with good response -she states if she doesn't treat with anti fungals the rash will spread all over -rash does not itch nor is it painful and what bothers her most when asked is the appearance of therash itself Medications: Reviewed in eD-H Allergies: Reviewed in eD-H Skin Examination: Waist-up skin examination: Patient was asked to disrobe to the level of their comfort. Patient elected to remain clothed below the waist. Examination of the scalp, hair, face, ears, neck, back, chest, abdomen, and upper extremities was normal with the exception of the findings below. Assessment/Plan #. Tinea Versicolor - Scattered 0.5-1.5 cm pink to light brown, round, well- demarcated, thin patches with very fine overlying scale on the upper back, neck and extending into the scalp - Reviewed diagnosis, association with yeast, and treatment options. - Discussed delay in return of normal pigmentation after treatment and accentuation of difference with unprotected sun exposure. YEISON testing of the skin scraping was positive for fungal elements. - Start Rx: ketoconazole 2% cream: Apply twice daily to affected areas on the upper back, neck and extending into the scalp for 21 days and then as needed subsequently. - Once flaring has resolved, can use this as a body wash for maintenance - - start Rx: ketoconazole 2% shampoo: Lather onto areas affected, leave for 5-10 min, then rinse. Perform 2-3 times per week. Discussed sunscreen selection, specifically adequate UV-A and UV-B protection. Recommended SPF-30 or higher for UV-B. Recommended at least one of the following active ingredients for UV-A protection:zinc oxide, titanium dioxide, helioplex(R), mexoryl (R). Other: Sun protection discussed (protective clothing and SPF30+ broad-spectrum sunscreen) OTC skin products discussed RTC: 3/4 months for TInea Versicolor if flaring [x]Note routed to corporate legal secretary []Recall placed in scheduling system []Appointment scheduled at checkout Scribe attestation: Shelby Sales [facility] performed the documentation for this encounter inthe presence of and acting as a scribe for Sri Najera MD. I performed the above scribed service and agree with the accuracy of the documentation in this encounter. Reviewed and signed by: Sri Najera MD Dermatology [facility] Patient seen and evaluated with staff vendor quality supervisor: Can Hudson MD Dermatology [facility] * Can Hudson MD - 04/09/2023 10:20 AM EDT I directly supervised the Dermatology resident during this office visit. The resident presented thehistory and physical exam to me. I then saw and examined this patient with the resident. We reviewed the history and pertinent details and I confirmed the physical findings. I agree with the details of the history and physical exam as documented in the resident's note. CAN HUDSON MD Staff Physician documented in this encounter Plan of Treatment Not on file documented as of this encounter Visit Diagnoses Diagnosis Tinea versicolor Pityriasis versicolor documented in this encounter Care Teams Fudge Candy Maker Relationship Specialty Start Date End Date Caden Jeffries MD [address] [place] [address] PCP - General 09/03/10 documented as of this encounter
--- OUTSIDE RECORDS SUMMARY | 2024-07-22 01:03 | XMS_ITS | Encounter Summary ---
Author Organization [facility] [place] [address] Care Team Providers Care Mechanical Development Engineer Name Role Phone Caden Jeffries MD Primary Care Provider Encounter Details Date Type Department Care Team (Late st Contact Info) Description 06/17/2018 Orders Only [place] [address] Charley Page, CAROLYN [facility] [place] [address] Social History Tobacco Use Types Packs/Day Years Used Date Smoking Tobacco: Never Assessed Sex and Gender Information Value Date Recorded Sex Assigned at Not on file Gender Identity Not on file Sexual Orientation Not on file documented as of this encounter Plan of Treatment Not on file documented as of this encounter Procedures Procedure Name Priority Date/Time Associated Diagnosis Comments VARICELLA ZOSTER ANTIBODY, IGG Routine 06/17/2018 12:55 PM EDT documented in this encounter Results * Varicella zoster Antibody, IgG (06/17/2018 12:55 PM EDT) Varicella Zoster Antibody IgG Pos [facility] Blood specimen (specimen) Venous Draw / Unknown 06/17/2018 12:55 PM EDT 06/18/2018 7:18 AM EDT Narrative Resulting Agency Comment Spec In Lab Charley Candelario Kaylee WAREHOUSE FOREMAN IMMUNOLOGY ORDERABLE S [facility] [place] [address] documented in this encounter Visit Diagnoses Not on filedocumented in this encounter Care Teams Mechanical Development Engineer Relationship Specialty Start Date End Date Caden Jeffries MD [address] [place] [address] PCP - General 09/03/10 documented as of this encounter
--- OUTSIDE RECORDS SUMMARY | 2024-07-22 01:03 | XMS_ITS | Encounter Summary ---
Author Organization [facility] Address [address] [place] [address] Care Team Providers Care Inspector Floor Name Role Phone Caden Jeffries MD Primary Care Provider [phone] Encounter Details Date Type Department Care Team (Late st Contact Info) Description 12/17/2021 Lab Requisition [facility] Pathology & Laboratory Medicine - [address] [address] Outr Resulting Lab, Provider Social History Tobacco [...] Diagnosis Comments HEPATITIS B SURFACE ANTIBODY Routine 12/17/2021 10:13 EST VARICELLA IGG ANTIBODY Routine 12/17/2021 10:13 EST documented in this encounter Results * HEPATITIS B SURFACE ANTIBODY (12/17/2021 10:13 EST) Hep B Surface Ab, Quantitative 63.7 See Note mIU/mL 12/18/2021 10:08 EST [facility] Comment: Reference Range for Hep B Surface Ab, Quant: Positive: >= 10.0 mIU/mL Negative: ??< 10.0 mIU/mL Patient is presumed to be immune to infection with Hepatitis B Virus. Hep B Surface Ab, Qualitative Positive See Note 12/18/2021 10:08 EST [facility] Comment: Reference Range for Hep B Surface Ab, Qual: Unvaccinated: ??Negative Vaccinated: ??Positive Blood VENOUS BLOOD / Unknown 12/17/2021 10:13 EST 12/17/2021 17:53 EST Provider Outr Resulting Lab CHEMISTRY & BLOOD GAS ORDERABLES Performing Organization Address [facility] Co de Phone Number [facility] [address] [place] [address] * VARICELLA IGG ANTIBODY (12/17/2021 10:13 EST) Varicella IgG Ab Positive See Note 12/18/2021 10:20 EST [facility] Comment:Presence of detectab le Varicella Zoster virus IgG antibodies. Blood VENOUS BLOOD / Unknown 12/17/2021 10:13 EST 12/17/2021 17:53 EST Provider Outr Resulting Lab IMMUNOLOGY A ND SEROLOGY ORDERABLES Performing Organization Address [facility] Co de Phone Number [facility] [address] [place] [address] documented in this encounter Visit Diagnoses Not on filedocumented in this encounter Care Teams Inspector Floor Relationship Specialty Start Date End Date Caden Jeffries MD [address] [place] [id number] PCP - General 04/11/10 documented as of this encounter
--- OUTSIDE RECORDS SUMMARY | 2024-07-22 01:03 | XMS_ITS | Clinical Summary ---
Author Organization [facility] Address [address] [place] [address] Care Team Providers Care Medicare Sales Executive Name Role Phone Caden Jeffries MD Primary Care Provider [phone] Encounters Date Type Department Care Team Description 07/21/2024 Lab Requisition [facility] Pathology & Laboratory Medicine - [address] [address] Winifred Rivera, RESEARCH PROJECT COORDINATOR Encounter for other general examination from Last 3 Months Social History Tobacco Use Types Packs/Day Years Used Date Smoking Tobacco: Never Assessed Sex and Gender Information Value Date Recorded Sex Assigned at Not on file Gender Identity Not on file Sexual Orientation Not on file Plan of Treatment Health Maintenance Due Date Last Done Comments Hepatitis C Screen 1980 Hepatitis B Vaccine (1 of 3 - 19+ 3-dose series) 05/29 COVID-19 Vaccine ( season) 2024 Care Teams Medicare Sales Executive Relationship Specialty Start Date End Date Caden Jeffries MD [address] [place] [address] PCP - General 04/11/10
--- OUTSIDE RECORDS SUMMARY | 2024-07-22 01:03 | XMS_ITS | Referral Summary ---
Author Organization [facility] Address [address] [place] [address] Care Team Providers Care Engineering Specialist Name Role Phone Caden Jeffries MD Primary Care Provider [phone] Encounters Date Type Department Care Team Description 07/21/2024 Lab Requisition [facility] Pathology & Laboratory Medicine - [address] [address] Winifred Rivera, COMMUNITY ASSISTANT Encounter for other general examination from Last 3 Months Social History Tobacco Use Types Packs/Day Years Used Date Smoking Tobacco: Never Assessed Sex and Gender Information Value Date Recorded Sex Assigned at Not on file Gender Identity Not on file Sexual Orientation Not on file Plan of Treatment Not on file Care Teams Engineering Specialist Relationship Specialty Start Date End Date Caden Jeffries MD [address] [place] [address] PCP - General 04/11/10
--- OUTSIDE RECORDS SUMMARY | 2024-07-22 01:03 | XMS_ITS | Encounter Summary ---
Author Organization [facility] Address [address] [place] [address] Care Team Providers Care Diesel Retrofit Installer Name Role Phone Caden Jeffries MD Primary Care Provider [phone] Encounter Details Date Type Department Care Team (Late st Contact Info) Description 01/12/2014 Results Only [facility] [phone] Sri Sanchez MD [address] [place] [address] Social History Tobacco Use Types Packs/Day Years Used Date Smoking Tobacco: Never Assessed Sex and Gender Information Value Date Recorded Sex Assigned at Not on file Gender Identity Not on file Sexual Orientation Not on file documented as of this encounter Plan of Treatment Not on file documented as of this encounter Procedures Procedure Name Priority Date/Time Associated Diagnosis Comments QUAD SCREEN (SECOND TRIMESTER) MATERNAL, S Routine 01/12/2014 9:58 EDT QUAD MARKER SCREEN Routine 01/12/2014 9:58 EDT documented in this encounter Results * QUAD MARKER SCREEN (01/12/2014 9:58 EDT) Interpretation Negative [facility] Comment:INTERPRETATION: SCRE EN NEGATIVE AFP/QUAD Report Refer to supplemental report for complete [facility] Comment:interpretive informa tion. 01/12/2014 9:58 EDT 01/12/2014 16:42 EDT Sri Sanchez MD CHEMISTRY & BLOOD GA S ORDERABLES [facility] [address] [place] [address] * QUAD MARKERS (01/12/2014 9:58 EDT) AFP/QUAD Sample Sample received in the lab. [facility] 01/12/2014 9:58 EDT 01/12/2014 16:42 EDT Sri Sanchez MD CHEMISTRY & BLOOD GA S ORDERABLES [facility] [address] [place] [address] documented in this encounter Visit Diagnoses Not on filedocumented in this encounter Care Teams Diesel Retrofit Installer Relationship Specialty Start Date End Date Caden Jeffries MD [address] [place] [address] PCP - General 04/11/10 documented as of this encounter
--- OUTSIDE RECORDS SUMMARY | 2024-07-22 01:03 | XMS_ITS | Encounter Summary ---
Author Organization [facility] Address [address] [place] [address] Care Team Providers Care Hand Drawer In Helper Name Role Phone Caden Jeffries MD Primary Care Provider [phone] Encounter Details Date Type Department Care Team (Late st Contact Info) Description 05/28/2010 Results Only [facility] [phone] Millie Sanchez MD [address] [place] [address] Social History Tobacco Use Types Packs/Day Years Used Date Smoking Tobacco: Never Assessed Sex and Gender Information Value Date Recorded Sex Assigned at Not on file Gender Identity Not on file Sexual Orientation Not on file documented as of this encounter Plan of Treatment Not on file documented as of this encounter Procedures Procedure Name Priority Date/Time Associated Diagnosis Comments CYTOPATHOLOGY Routine 05/28/2010 0:00 EDT documented in this encounter Results * CYTOPATHOLOGY (05/28/2010 0:00 EDT) Pathology Report: CYTOPATHOLOGY REPORT ? Reports generated via electronic interface contain original data; ? however they are lacking the format of the original report. ? Caution should be taken when reading/interpreti ng unformatted reports. ? Name: ? JESS MEYER ? Accession #: ? [id number] ? : ? 1980 (Age: 30) ??F ?Collect Date: ? 05/28/2010 ? Location: ? [facility] ? Receive Date: ? 2010 ? Provider: ?MILLIE SANCHEZ MD ? Copy to: ? Specimen/Source: ?Pap Test, Cervix/Endocervix, ThinPrep Imaging System ? with manual evaluation ? Last Menstrual Period: ? Menstrual/Pregnanc y Status: ? Post ? Other: ? Additional clinical information: Last pap 6/2/09 neg. ? HPVA - HPV testing requested if ASC-US on the current ThinPrep Pap test. ? SPECIMEN ADEQUACY ? Satisfactory for Evaluation ? - assessment of transformation zone component not applicable ( e.g. atrophy, ? vaginal sample, hysterectomy) ? GENERAL CATEGORIZATION ? Negative for Intraepithelial Lesion or Malignancy ? Document reviewed and electronically signed by: ? Nakia Verville,CT(ASCP) ? Report Date: ??05/30/2010 08:09 ? End of Report ? [facility] 05/28/2010 2010 Millie Sanchez MD PATHOLOGY ORDERABLES Performing Organization Address City/State/[facility] Co de Phone Number [facility] [address] [place] [address] documented in this encounter Visit Diagnoses Not on filedocumented in this encounter Care Teams Hand Drawer In Helper Relationship Specialty Start Date End Date Caden Jeffries MD [address] [place] [address] PCP - General 04/11/10 documented as of this encounter
--- OUTSIDE RECORDS SUMMARY | 2024-07-22 01:03 | XMS_ITS | Encounter Summary ---
Author Organization [facility] Address [address] [place] [address] Care Team Providers Care Electrical Assembler Name Role Phone Unknown, Provider Primary Care Provider [phone] Encounter Details Date Type Department Care Team (Late st Contact Info) Description 04/09/2010 Results Only [facility] [phone] Millie Sanchez MD [address] [place] [address] Social History Tobacco Use Types Packs/Day Years Used Date Smoking Tobacco: Never Assessed Sex and Gender Information Value Date Recorded Sex Assigned at Not on file Gender Identity Not on file Sexual Orientation Not on file documented as of this encounter Plan of Treatment Not on file documented as of this encounter Procedures Procedure Name Priority Date/Time Associated Diagnosis Comments CYTOPATHOLOGY Routine 04/09/2010 0:00 EDT SURGICAL PATHOLOGY Routine 04/09/2010 0:00 EDT documented in this encounter Results * SURGICAL PATHOLOGY (04/09/2010 0:00 EDT) Pathology Report: SURGICAL PATHOLOGY REPORT ? Reports generated via electronic interface contain original data; ? however they are lacking the format of the original report. ? Caution should be taken when reading/interpreti ng unformatted reports. ? Name: ? MITCH, JESS ? Accession #: ? [id number] ? : ? 1980 (Age: 29) ??F ? Collect Date: ? 04/09/2010 ? Location: ? [facility] ? Receive Date: ? 04/09/2010 ? Provider: MILLIE S SILVIA MD ? Copy to: ROMA SIMON MD ? KYE [facility]ARE[facility] CNM ? Final Pathologic Diagnosis: ? Ovarian cyst, left, excision: ? - Mature cystic teratoma. ? Document reviewed and electronically signed by: ? Mor Mckeon, ? Report ??Date: 04/12/2010 16:11 ? By the signature above, the attending physician certifies that he/she has ? personally conducted a gross and/or microscopic examination of the described ? specimens and rendered or confirmed the above diagnosis. ? Specimen(s) Received: ? Left ovarian dermoid cyst ? Clinical History: ? 39 wks IUP, severe LLQ pain, ovarian torsion ? Gross Description: ? Received in formalin labelled Mitch, Jess and left ovarian dermoid ?? cyst is a 9.0 gram, 4.5 x 4.0 x 3.0 cm cyst received opened, which has a 7.0 x 5.0 x 2.0 cm aggregate of light brown, matted hair admixed with sebaceous ? material extending from the inner aspect of the cyst. ??The external surface of ?? the cyst is generally smooth, dean-clemente to dean-white. ??The inner lining of the ?? cyst has a 3.0 x 3.0 cm portion which is white and appears to be consistent with cutaneous tissue, and the hair is extending from this area. ??This area measures up to 1.0 cm in thickness and when sectioned, has some subcutaneous adipose ? tissue as well as focal small hard calcifications. ??The remaining inner lining ?? of the cyst is generally smooth, white to focally dean and dean-brown. ??The cyst ?? wall measures 0.1 cm in average thickness. ??There is no discernible ovarian ? parenchyma, nor is there a fallopian tube. ??Eight hobbies and crafts sales representative sections of the specimen are submitted as (A1)-(A3). (Faustino Mares)/mpl ? End of Report ? [facility] 04/09/2010 04/09/2010 19: 09 EDT Millie Sanchez MD PATHOLOGY ORDERABLES [facility] [address] [place] [address] * CYTOPATHOLOGY (04/09/2010 0:00 EDT) Pathology Report: CYTOPATHOLOGY REPORT ? Reports generated via electronic interface contain original data; ? however they are lacking the format of the original report. ? Caution should be taken when reading/interpreti ng unformatted reports. ? Name: ? JESS MEYER ? Accession #: ? [id number] ? : ? 1980 (Age: 29) ??F ?Collect Date: ? 04/09/2010 ? Location: ? [facility] ? Receive Date: ? 04/09/2010 ? Provider: MILLIE S SILVIA MD ? Copy to: ROMA SIMON MD ? KYE ALVAREZ CNM ? Addendum ? Date Ordered: ? 04/17/2010 ? Status: Signed Out ? Date Complete: ? 04/17/2010 ? By: Edda Aguilar ? Date Reported: ? 04/17/2010 ? Addendum Comment ? This addendum is issued to document the cell block that was obtained on ? this case and reviewed. ??The diagnosis remains unchanged. ??(Dr. Ross)/mpl ? Document reviewed and electronically signed by: ? Den Ross MD ? Report date: 04/17/2010 ? By the signature above, the attending physician certifies that he/she has ? personally conducted a gross and/or microscopic examination of the described ? specimens and rendered or confirmed the above diagnosis. ? Final Report ? Cytologic Diagnosis: ? Ovarian cyst, left, fine needle aspiration: ? - No malignant cells identified. ? Gross Description: ? 5cc' s of yellow, waxy, solidified fluid were received and processed by ? selective cellular enhancement technique. ? Clinical History: ? 39 weeks, severe LLQ pain, ovarian torsion. ? Specimen Type: ??Ovarian Cyst, Fine Needle Aspiration, Left ? Document reviewed and electronically signed by: ? Den Ross MD ? Report ??Date: 04/11/2010 16:58 ? By the signature above, the attending physician certifies that he/she has ? personally conducted a gross and/or microscopic examination of the described ? specimens and rendered or confirmed the above diagnosis. ? End of Report ? [facility] 04/09/2010 04/09/2010 15: 36 EDT Millie Sanchez MD PATHOLOGY ORDERABLES [facility] [address] [place] [address] documented in this encounter Visit Diagnoses Not on filedocumented in this encounter Care Teams Electrical Assembler Relationship Specialty Start Date End Date Unknown, Provider, PCP - General 03/14/09 04/10/10 documented as of this encounter
--- OUTSIDE RECORDS SUMMARY | 2024-07-22 01:03 | XMS_ITS | Encounter Summary ---
Author Organization [facility] [place] [address] Care Team Providers Care Vegetable Picker Name Role Phone Caden Jeffries MD Primary Care Provider [phone] Reason for Visit * Reason Comments Advice Only Encounter Details Date Type Department Care Team (Late st Contact Info) Description 12/22/2018 11:15 AM EDT Office Visit Dermatology at [place] [address] [place] [address] Julia Mcrae MD [facility] [address] [facility] [address] Encounter for cosmetic procedure Social History Tobacco Use Types Packs/Day Years Used Date Smoking Tobacco: Never Smokeless Tobacco: Never Sex and Gender Information Value Date Recorded Sex Assigned at Not on file Gender Identity Not on file Sexual Orientation Not on file documented as of this encounter Patient Instructions * Patient Instructions* Gricelda Parks LPN - 12/22/2018 11:15 AM EDT ND YAG LASER The ND Yag procedure is one of the most popular treatments in our office. It is used often in conjunction with other laser procedures for facial redness and blood vessles. It's also used to treat unwanted leg veins. The ND Yag has a longer and more deeply penetrating wavelength than the Pulsed Dye or IPL treatments and can therefore have more of an effect on boosting collagen. The ND Yag treats the redness and blood vessels that detract from a healthy, evenly colored complexion. It also treats the inflammation of rosacea and acne and can be effective at stimulating collagen growth. Blood vessels are stubborn and (whichever laser we use) require multiple treatments. The average patient will see significant and long lasting improvement after 3 monthly treatments and so we typically suggest 2-5 treatments, each by one month. Whether treating rosacea, sun damage or aging in general, there is always a tendency to re accumulate redness and blood vessels. We therefore suggest a single maintenance treatments every 6-12 months. The best, most long-lasting results are seen in patients who maintain with a good skincare routine that includes excellent sun protection and aretinoid. Discuss this with your provider if you don't have such a regimen. Before Your ND Yag Procedure: ?? Consider taking 400-600 mg Ibuprofen to minimize discomfort during the procedure. ?? Stop all retinols, vitamin C, hydroxy acids 5 days before your treatment. (If on a ZO regimen products to avoid include: C Bright, TE Pads, Exfoliating Khmer, Vitascrub, Cebatrol, Glycogent, Melamix, Tretinoin, Retamax, Brightenex, Brightamax, Growth Factor, Invisapeel.) Check with your doctor if you are unsure. ?? If you plan to receive numbing cream, please be sure to come 30 min before your appointment timeand tell the front tender that you were told to do so. ?? Don't plan a major engagement within one week. (Prolonged swelling is very unlikely but better to be safe and allow a week.) ?? Expect redness and swelling for typically 24 hours. After Your ND Yag Procedure: ?? Apply ice hadley as needed for comfort. ?? Avoid heat or sun exposure until redness and swelling subside. ?? Swelling can be minimal to severe. If severe, consider sleeping with the head of your bed elevated. ?? Blood vessels and redness may seem worse than they were before the treatment in some areas. Thisdoesn't mean the treatment wasn't effective. Expect improvement to evolve over the following 3 weeks. ?? OK to resume your normal skin care routine when swelling, sensitivity and redness have resolved (typically 24-48 hours). ?? Avoid sun exposure directly to the skin for 1 week after treatment. Questions and/or concerns please call: ???s appointment membership secretary On weekends of off hours please call [facility] main number and ask for the electrical products sales engineer manager labor relations: or call Dr. Mcrae's cell: [phone] documented in this encounter Progress Notes * Julia Mcrae MD - 12/22/2018 11:15 AM EDT DERMATOLOGY COSMETIC CONSULT Date of service: 12/22/2018 Jess Meyer : 1980 Provider: Julia Mcrae MD Chief Complaint Patient presents with ??? Advice Only HPI Jess Meyer is a 38 y.o. year old female. New Patient to me and to [facility] dermatology. She presents to the clinic today for a consultation for spider veins for potential treatment options ROS General: feeling well Skin: denies other skin complaints Breast feeding:No Trying to get :No PMH: Any chronic medical conditions:No SKIN HX: None HSV Hx and Details Yes, but no recent cold sores SH: Tobacco: no ETOH: Yes ADR: Allergies Allergen Reactions ??? Morphine Anaphylaxis MEDS: No current outpatient medications on file. No current facility-administered medications for this visit. Examination General: Appears well, no distress Assessment and Plan: # Unwanted leg veins Area of Concern: Legs - Treatment today? N If yes, see Sclerotherapy Treatment Log - Special considerations for this patient: Most concerned over veins on the calf on the left leg - Consent signed?: (date) - Suggested treatment course: vials every 6-8 weeks for treatments. - [facility] quoted: $250 per session - Sclerotherapy Before and After HO given? N # ND Yag treatments for spider veins located on bilateral legs - Number of treatments recommeded: 1-2 - Special considerations for this pt: - Area of main concern: back of left lower leg - Before and after instructions given (in AVS): Yes (name of handout) - HSV prophylaxis needed?: N If yes, does pt have rx?: N date verified: 12/22/2018 - [facility] quoted: $250.00 per treatment - See laser log for treatment dates and details -Additional notes: Will schedule in the fall, may have to schedule a sclerotherapy visit if needed Pt paid:$150.00 Instructions: Handout: yes FOLLOW UP WHEN: Fall 2018 FOR WHAT: ND yag leg veins LENGTH OF VISIT: 15 NUMBING?: no PICTURES NEEDED? Yes (need haiku pics, not fotofinder) COST: $250 NOTES: pt aware she cannot be dean. May need sclero subsequently I am documenting this encounter acting as the scribe for and in the presence of Dr.Lucas Gricelda Parks LPN I performed the above scribed service and agree with the accuracy of the documentation in this encounter. Julia Mcrae MD Section of Dermatology [facility] documented in this encounter Plan of Treatment Not on file documented as of this encounter Visit Diagnoses Diagnosis Encounter for cosmetic procedure documented in this encounter Care Teams Vegetable Picker Relationship Specialty Start Date End Date Caden Jeffries MD [address] [place] [address] PCP - General 09/03/10 documented as of this encounter
--- OUTSIDE RECORDS SUMMARY | 2024-07-22 01:03 | XMS_ITS | Encounter Summary ---
Author Organization [facility] [place] [address] Care Team Providers Care Thermodynamicist Name Role Phone Caden Jeffries MD Primary Care Provider [phone] Encounter Details Date Type Department Care Team (Late st Contact Info) Description 11/09/2019 Telephone Dermatology at [facility] [address] [place] [address] Julia Mcrae MD [facility] [address] [place] [address] Social History Tobacco Use Types Packs/Day Years Used Date Smoking Tobacco: Never Smokeless Tobacco: Never Sex and Gender Information Value Date Recorded Sex Assigned at Not on file Gender Identity Not on file Sexual Orientation Not on file documented as of this encounter Miscellaneous Notes * Telephone Encounter - Lisette Reyes - 11/09/2019 8:38 AM EST I contacted the patient today to reschedule her upcoming visit on 11/30 due to a change in Dr. Mcrae's schedule. I was unable to speak w/ anyone when I called, but I was able to leave [phone] for call back. documented in this encounter Plan of Treatment Not on file documented as of this encounter Visit Diagnoses Not on filedocumented in this encounter Care Teams Thermodynamicist Relationship Specialty Start Date End Date Caden Jeffries MD [address] [place] [address] PCP - General 09/03/10 documented as of this encounter
--- OUTSIDE RECORDS SUMMARY | 2024-07-22 01:03 | XMS_ITS | Encounter Summary ---
Author Organization [facility] Address [address] [place] [address] Care Team Providers Care Drywall Hanger Framer Name Role Phone Caden Jeffries MD Primary Care Provider Encounter Details Date Type Department Care Team (Late st Contact Info) Description 08/01/2011 Results Only [facility] - [facility] ([facility]) [address] [place], [place] [address] Trina [place], [place] [address] Social History Tobacco Use Types Packs/Day Years Used Date Smoking Tobacco: Never Assessed Sex and Gender Information Value Date Recorded Sex Assigned at Not on file Gender Identity Not on file Sexual Orientation Not on file documented as of this encounter Plan of Treatment Not on file documented as of this encounter Procedures Procedure Name Priority Date/Time Associated Diagnosis Comments PAP TEST- RESULT ONLY Routine 08/01/2011 0:00 EDT documented in this encounter Results * PAP TEST- RESULT ONLY (08/01/2011 0:00 EDT) Pathology Report: CYTOPATHOLOGY REPORT Reports generated via electronic interface contain original data; however they are lacking the format of the original report. Caution should be taken when reading/interpreti ng unformatted reports. Name: ? JESS MEYER ? Accession #: ? [id number] : ? 1980 (Age: 31) ??F ?Collect Date: ? 08/01/2011 Location: ? [facility] ? Receive Date: ? 08/04/2011 Provider: ?TRINA ALVAREZ CNM Copy to: ?CADEN JEFFRIES MD ? Specimen/Source: ?Pap Test, Cervix/Endocervix, ThinPrep Imaging System with manual evaluation Last Menstrual Period: ? 06/04/11 Menstrual/Pregnanc y Status: ? SPECIMEN ADEQUACY ? Satisfactory for Evaluation - transformation zone component present GENERAL CATEGORIZATION ? Negative for Intraepithelial Lesion or Malignancy ? Document reviewed and electronically signed by: ? KAYLI Bustos(ASCP) ? Report Date: ??08/12/2011 08:58 End of Report [facility] 08/01/2011 08/04/2011 Trina Alvarez CNM PATHOLOGY ORDERABLES Performing Organization Address City/State/[facility] Co de Phone Number [facility] [address] [place] [address] documented in this encounter Visit Diagnoses Not on filedocumented in this encounter Care Teams Drywall Hanger Framer Relationship Specialty Start Date End Date Caden Jeffries MD [address] [place] [address] PCP - General 04/11/10 documented as of this encounter
--- OUTSIDE RECORDS SUMMARY | 2024-07-22 01:03 | XMS_ITS | Encounter Summary ---
Author Organization [facility] Address [address] [place] [address] Care Team Providers Care It Service Manager Name Role Phone Caden Jeffries MD Primary Care Provider Encounter Details Date Type Department Care Team (Late st Contact Info) Description 07/21/2024 Lab Requisition [facility] Pathology & Laboratory Medicine - [address] [address] Winifred Rivera, QUARTER DOPER [address] [place] [id number] Encounter for other general examination Social History Tobacco Use Types Packs/Day Years Used Date Smoking Tobacco: Never Assessed Sex and Gender Information Value Date Recorded Sex Assigned at Not on file Gender Identity Not on file Sexual Orientation Not on file documented as of this encounter Plan of Treatment Pending Results Name Type Priority Associated Diagnoses Date /Time PAP TEST Pathology Today Encounter for other general examination 07/20/2024 8:30 EDT documented as of this encounter Visit Diagnoses Diagnosis Encounter for other general examination documented in this encounter Care Teams It Service Manager Relationship Specialty Start Date End Date Caden Jeffries MD [address] [place] [address] PCP - General 04/11/10 documented as of this encounter
--- OUTSIDE RECORDS SUMMARY | 2024-07-22 01:03 | XMS_ITS | Encounter Summary ---
Author Organization [facility] [place] [address] Care Team Providers Care Fee Clerk Name Role Phone Caden Jeffries MD Primary Care Provider [phone] Encounter Details Date Type Department Care Team (Late st Contact Info) Description 03/20/2015 Orders Only Obstetrics [place] [address] Janeth Morel MD [facility] DR OBSTETRICS & [place] [address] Social History Tobacco Use Types Packs/Day Years Used Date Smoking Tobacco: Never Assessed Sex and Gender Information Value Date Recorded Sex Assigned at Not on file Gender Identity Not on file Sexual Orientation Not on file documented as of this encounter Plan of Treatment Not on file documented as of this encounter Visit Diagnoses Not on filedocumented in this encounter Care Teams Fee Clerk Relationship Specialty Start Date End Date Caden Jeffries MD [address] [place], [place] [address] PCP - General 09/03/10 documented as of this encounter
--- OUTSIDE RECORDS SUMMARY | 2024-07-22 01:03 | XMS_ITS | Encounter Summary ---
Author Organization [facility] Address [address] [place] [address] Care Team Providers Care C Consultant Name Role Phone Caden Jeffries MD Primary Care Provider [phone] Encounter Details Date Type Department Care Team (Late st Contact Info) Description 09/27/2012 Results Only [facility] [phone] Millie Sanchez MD [address] [place] [address] Social History Tobacco Use Types Packs/Day Years [...] Diagnosis Comments PAP TEST- RESULT ONLY Routine 09/27/2012 0:00 EST documented in this encounter Results * PAP TEST- RESULT ONLY (09/27/2012 0:00 EST) Pathology Report: CYTOPATHOLOGY REPORT Reports generated via electronic interface contain original data; however they are lacking the format of the original report. Caution should be taken when reading/interpreti ng unformatted reports. Name: ? JESS MEYER ? Accession #: ? [id number] ? : ? 1980 (Age: 32) ??F ?Collect Date: ? 09/27/2012 ? Location: ? [facility] ? Receive Date: ? 09/27/2012 ? Provider: MILLIE SANCHEZ MD Copy to: CADEN JEFFRIES MD ? Final Report SPECIMEN ADEQUACY ? Satisfactory for Evaluation - transformation zone component present GENERAL CATEGORIZATION ? Negative for Intraepithelial Lesion or Malignancy ?? Other: Additional clinical information: Pap 08/01/11 neg. Specimen/Source: ??Pap Test, Cervix/Endocervix, ThinPrep Imaging System with manual evaluation Document reviewed and electronically signed by: ? Masoud Elena, CT(ASCP) ? Report ??Date: 10/06/2012 09:59 HPV with Pap Test ? Date Ordered: ? 10/06/2012 ? Status: ?? Signed Out ?Date Complete: ? 10/08/2012 ? By: ??System Interface ? Date Reported: ? 10/08/2012 ? Interpretation RESULT: Negative for HPV. No E6 or E7 mRNA is detected from HPV types 16,18,31,33,35, 39,45,51,52,56,58, 59,66, and 68 by desk pens assembler mediated amplification. Comments Document reviewed and electronically signed by: ? System Interface ? Report date: 10/08/2012 By the signature above, the attending physician certifies that he/she has personally conducted a gross and/or microscopic examination of the described specimens and rendered or confirmed the above diagnosis. End of Report [facility] 09/27/2012 09/27/2012 Millie Sanchez MD PATHOLOGY ORDERABLES [facility] [address] [place] [address] documented in this encounter Visit Diagnoses Not on filedocumented in this encounter Care Teams C Consultant Relationship Specialty Start Date End Date Caden Jeffries MD [address] [place] [address] PCP - General 04/11/10 documented as of this encounter
--- OUTSIDE RECORDS SUMMARY | 2024-07-22 01:03 | XMS_ITS | Encounter Summary ---
Author Organization [facility] [place] [address] Care Team Providers Care Gas Maker Helper Name Role Phone Caden Jeffries MD Primary Care Provider Reason for Visit * Reason Onset Date Comments Medication Refill 12/29/2023 Encounter Details Date Type Department Care Team (Late st Contact Info) Description 12/29/2023 Refill Dermatology at [facility] [address] [place] [address] Sri Najera MD [facility] [address] NUNEZ-[place] [address] Tinea versicolor Social History Tobacco Use Types Packs/Day Years Used Date Smoking Tobacco: Never Smokeless Tobacco: Never Sex and Gender Information Value Date Recorded Sex Assigned at Not on file Gender Identity Not on file Sexual Orientation Not on file documented as of this encounter Miscellaneous Notes * Telephone Encounter - Gill Doshi CCMA - 12/29/2023 11:39 AM EDT Medication Refill Request Order(s) pended and routed to Dr. Najera to review and sign, if appropriate. - Medication(s) requested to refill: Ketoconazole shampoo and cream - Associated diagnosis: Tinea Versicolor - Last visit: 04/09/2023 - Recommended follow up: 3-4 months - Next scheduled: Visit date not found - Special considerations: Pending MD Approval - Appropriate to refill: Y documented in this encounter Plan of Treatment Not on file documented as of this encounter Visit Diagnoses Diagnosis Tinea versicolor Pityriasis versicolor documented in this encounter Care Teams Gas Maker Helper Relationship Specialty Start Date End Date Caden Jeffries MD [address] [place] [address] PCP - General 09/03/10 documented as of this encounter
--- NOTE | 2024-07-22 08:11 | DI.MAMMO_ITS ---
Exam(s) MAMMO SCREENING EXAM: MAMMO SCREENING CLINICAL HISTORY: screening. TECHNIQUE: Bilateral full field digital CC and MLO mammographic images were obtained with 3D tomosyn thesis and utilizing computer aided detection (CAD). COMPARISON: None. This is a baseline mammogram 44-year-old FINDINGS: Fibroglandular tissue pattern is moderately dense, this somewhat decreasing the sensitivity of the ma mmogram for finding hidden underlying lesions. There are no obvious spiculated masses nor malignant appearing microcalcification groups. Few small benign-appearing microcalcifications are noted. There is no significant architectural distortion nor skin thickening-retraction. IMPRESSION: No radiographic evidence of malignancy. Moderately dense fibroglandular pattern. BI-RADS Category 1 - Negative Breast Density - Category C - Heterogeneously dense Breast density Category C or D implies that the patient has dense breast tissue. Dense breast tissue can make it harder to find cancer on a mammogram. Dense breast tissue is also associated with an incr eased risk of breast cancer. This information about the result of the mammogram report was provided to the patient to raise their awareness. Use this report when you speak with the patient about their risks for breast cancer, which includes their family history. At that time, you may recommend additional screening tests (Ultrasoun d or MRI) as these tests may add significant information. A negative radiographic report should not delay biopsy if a dominant or clinically suspicious mass is present. Up to ten percent of cancers are not identified on mammography. A negative report may reinforce clinical impression. Adenosis and dense breasts may obscure an underlying neoplasm. False positive reports average 6 to 10%. Patient will receive a letter notifying them of these results.
== END 2024-07-22 01:21 ==
LOC: DI 01:02
PROVIDERS: PCP Family Medicine; Visit Provider Nurse Practitioner Women's Health
DX: Z12.31 Encounter for screening mammogram for malignant neoplasm of breast (principal)
CPT/HCPCS: 77063; 77067

== ENCOUNTER → 2025-09-22 01:23 | Outpatient (CLI) | payer BC, SELFPAY ==
--- NOTE | 2025-09-22 12:00 | DI.MAMMO_ITS ---
Exam(s) MAMMO SCREENING EXAM: MAMMO SCREENING CLINICAL HISTORY: screening, Z12.39 TECHNIQUE: Mammograms were interpreted according to the usual protocol including computer analysis with CAD system, tomosynthesis and C-view imaging. COMPARISON: 2023 FINDINGS: The breasts are composed of heterogeneously dense fibroglandular densities, Breast Density category C. No suspicious masses or suspicious microcalcifications are seen. No skin thickening or abnormal axillary lymph nodes are seen. There has been no significant change from prior exams. IMPRESSION: BI-RADS Category 1, Negative mammogram. Yearly screening mammography is recommended. Breast Density: Category C - The breasts are heterogeneously dense, which may obscure small masses. Breast density Category C or D implies that the patient has dense breast tissue. Dense breast tissue can make it harder to find cancer on a mammogram. Dense breast tissue is also associated with an increased risk of breast cancer. This information about the result of the mammogram report was provided to the patient to raise their awareness. Use this report when you speak with the patient about their risks for breast cancer, which includes their family history. At that time, you may recommend additional screening tests (Ultrasound or MRI) as these tests may add significant information. A negative radiographic report should not delay biopsy if a dominant or clinically suspicious mass is present. Up to ten percent of cancers are not identified on mammography. A negative report may reinforce clinical impression. Adenosis and dense breasts may obscure an underlying neoplasm. False positive reports average 6 to 10%.
== END ==
LOC: DI 01:23
PROVIDERS: PCP Family Medicine; Visit Provider Nurse Practitioner Women's Health
DX: Z12.31 Encounter for screening mammogram for malignant neoplasm of breast (principal); R92.323 Mammographic fibroglandular density, bilateral breasts; R92.333 Mammographic heterogeneous density, bilateral breasts
CPT/HCPCS: 77063; 77067